=== PATIENT | female | born 1970 | race Caucasian/White ===

== ENCOUNTER 2016-12-22 15:02 | Emergency (ER) | payer BC, OTHER ==
[2016-12-22 15:22] VITALS: BP 150/74
--- NOTE | 2016-12-22 15:55 | UC ---
Throat Pain/Nasal Dilan HPI - HPI Summary HPI Summary: Painful spot around lower R ear for about 2 weeks, much worse with eating. Pt thinks it is her salivary gland. Denies swelling or fevers, but has felt some chills. - History of Current Complaint Hx Obtained From: Patient Hx Last Menstrual Period: one month ago ?: No Onset/Duration: Gradual Onset, Lasting Weeks Severity: Moderate Cough: None Associated Signs & Symptoms: Negative: Wheezing, Hoarseness, Nasal Discharge, Fever, Vomiting, Rash <Tangela Lu - Last Filed: 12/22/16 15:47> <Angie Downing - Last Filed: 12/22/16 16:41> - History of Current Complaint Chief Complaint: UCGeneralIllness Stated Complaint: GLAND PAIN Time Seen by Provider: 12/22/16 15:31 - Allergies/Home Medications Allergies/Adverse Reactions: Allergies Allergy/AdvReac Type Severity Reaction Status Date / Time Penicillins Allergy Severe Anaphylatic Verified 12/22/16 15:22 Shock Home Medications: Home Medications DULoxetine DR CAP* [Cymbalta CAP*] 1 tab PO DAILY 12/22/16 [History Confirmed ] PMH/Surg Hx/FS Hx/Imm Hx - Additional Past Medical History Additional PMH: fibromyalgia - Surgical History Surgical History: Yes Surgery Procedure, Year, and Place: TONSILECTOMY. TUBAL LIGATION. BILATERAL CARPAL TUNNEL - Family History Known Family History: Positive: None - Social History Alcohol Use: None Substance Use Type: None Smoking Status (MU): Light Every Day Tobacco Smoker <Tangela Lu - Last Filed: 12/22/16 15:47> Review of Systems Constitutional: Negative Skin: Negative Eyes: Negative ENT: Other - R parotid pain Respiratory: Negative Cardiovascular: Negative Gastrointestinal: Negative Genitourinary: Negative Motor: Negative Neurovascular: Negative Musculoskeletal: Negative Neurological: Negative Psychological: Negative Is Patient Immunocompromised?: No All Other Systems Reviewed And Are Negative: Yes <Tangela Lu - Last Filed: 12/22/16 15:47> Physical Exam Triage Information Reviewed: Yes Appearance: Well-Appearing, Well-Nourished Vital Signs: Initial Vital Signs Temp 97.3 F 12/22/16 15:19 Pulse 116 12/22/16 15:19 Resp 18 12/22/16 15:19 BP 150/74 12/22/16 15:19 Pulse Ox 100 12/22/16 15:19 Vital Signs Reviewed: Yes Eye Exam: Normal, Other - PERRL Eyes: Positive: Conjunctiva Clear ENT: Positive: Hearing grossly normal, Pharynx normal, TMs normal, Other: - tenderness, no swelling over R parotid gland. Negative: Nasal congestion, Nasal drainage Dental Exam: Normal Neck exam: Normal Neck: Positive: Supple, Nontender, No Lymphadenopathy Respiratory Exam: Normal Respiratory: Positive: Chest non-tender, Lungs clear, Normal breath sounds, No respiratory distress, No accessory muscle use Cardiovascular Exam: Normal Cardiovascular: Positive: RRR, No Murmur Musculoskeletal Exam: Normal Neurological Exam: Normal Neurological: Positive: Alert Psychological Exam: Normal Skin Exam: Normal <Tangela Lu - Last Filed: 12/22/16 15:47> Vital Signs: Initial Vital Signs Temp 97.3 F 12/22/16 15:19 Pulse 116 12/22/16 15:19 Resp 18 12/22/16 15:19 BP 150/74 12/22/16 15:19 Pulse Ox 100 12/22/16 15:19 <Angie Downing - Last Filed: 12/22/16 16:41> Throat Pain/Nasal Course/Dx - Differential Dx/Diagnosis Provider Diagnoses: siladinitis R parotid gland <Tangela Lu - Last Filed: 12/22/16 15:47> Discharge <Tangela Lu - Last Filed: 12/22/16 15:47> <Angie Downing - Last Filed: 12/22/16 16:41> - Discharge Plan Condition: Stable Disposition: HOME Prescriptions: Clindamycin Cap(NF) [Clindamycin Cap 300 mg Cap(NF)] 300 mg PO Q6H #28 cap Patient Education Materials: Sialoadenitis (ED) Forms: *Work Release Referrals: Layo Felix MD [Medical Doctor] - 4 Days Additional Instructions: Massage the sore spot, drink plenty of fluids, and follow up with the ENT within a week. Attestation Statement User Type: Provider - I was available for consult. This patient was seen by the BOONE. The patient was not presented to, seen by, or examined by me. -Adrienne <Angie Downing - Last Filed: 12/22/16 16:41>
== END 2016-12-22 16:08 | disposition home or self-care (01) ==
LOC: UCEAST 15:02
DX: K11.20 Sialoadenitis, unspecified (principal); Z88.0 Allergy status to penicillin; F17.200 Nicotine dependence, unspecified, uncomplicated
CPT/HCPCS: 99202; G0463

== ENCOUNTER 2017-03-24 16:40 | Inpatient (IN) | payer OTHER ==
[2017-03-24 20:00] LABS: ABS Basophils 0.1 10^3/ul (0-0.2); ABS Eosinophils 0.2 10^3/ul (0-0.6); ABS Lymphocytes 3.3 10^3/ul (1.0-4.8); ABS Monocytes 0.4 10^3/ul (0-0.8); ABS Neutrophils 6.1 10^3/ul (1.5-7.7); ABS Nucleated RBC 0 10^3/ul; Eosinophil % 1.5 % (0-6); Hematocrit 45 % (35-47); Hemoglobin 15.4 g/dl (12.0-16.0); Mean Corpuscular HGB Conc 35 g/dl (31-36); Mean Corpuscular Hemoglobin 32 pg (27-31); Mean Corpuscular Volume 93 fL (80-97); Mean Platelet Volume 7 um3 (7.4-10.4); Nucleated Red Blood Cells % 0; Platelet Count 334 10^3/ul (150-450); Red Blood Count 4.79 10^6/ul (4.0-5.4); Red Cell Distribution Width 13 % (10.5-15); White Blood Count 10.1 10^3/ul (3.5-10.8)
[2017-03-24 20:15] LABS: EGFR Non-African American 105.6 (>60)
[2017-03-24] MEDS ORDERED: Vancomycin(*) 1,250 MG in NS 0.9% 250 ML* 250 ML IVPB ONE (22:41)
[2017-03-24] MEDS ORDERED: traMADol TAB* 50 MG PO ONE (22:41)
--- NOTE | 2017-03-24 23:23 | ED ---
Devyn Batista Gabriel, scribed for Chuckie Quach MD on 03/24/17 at 2229 . Lower Extremity - HPI Summary HPI Summary: This patient is a 46 year old F presenting to [facility] with a chief complaint of a sore on her right foot. The patient rates the pain 5/10 in severity. Patient was seen at [place] and a swab of the foot and it showed coag neg staff resistant to everything but vancomycin and hycamtin. She was given Bactrim, Keflex, and Levaquin prior to these test results. Patient has had two x-rays that were negative for bone infection one in [facility] and one in [place]. Hx of DM. - History of Current Complaint Chief Complaint: EDExtremityLower Stated Complaint: OPEN SORE ON RT FT Time Seen by Provider: 03/24/17 21:53 Hx Obtained From: Patient Hx Last Menstrual Period: one month ago Mechanism Of Injury: Unknown Onset/Duration: Still Present Severity Initially: Moderate Severity Currently: Moderate Pain Intensity: 5 Pain Scale Used: 0-10 Numeric Timing: Constant Associated Signs And Symptoms: Positive: Swelling, Redness Able to Bear Weight: Yes - Allergies/Home Medications Allergies/Adverse Reactions: Allergies Allergy/AdvReac Type Severity Reaction Status Date / Time Penicillins Allergy Severe Anaphylatic Verified 12/22/16 15:22 Shock Erythromycin Allergy Hives Verified 03/24/17 22:55 Morphine AdvReac GI Upset Verified 03/24/17 22:57 PMH/Surg Hx/FS Hx/Imm Hx Endocrine/Hematology History: Reports: Hx Diabetes History: Denies: Hx Benign Prostatic Hyperplasia Musculoskeletal History: Denies: Hx Arthritis, Hx Rheumatoid Arthritis Psychiatric History: Denies: Hx Anxiety - Surgical History Surgery Procedure, Year, and Place: TONSILECTOMY. TUBAL LIGATION. BILATERAL CARPAL TUNNEL Infectious Disease History: No Infectious Disease History: Denies: Traveled Outside the [place] in Last 30 Days - Family History Known Family History: Positive: Diabetes - father, mother Negative: Renal Disease, Respiratory Disease, Seizure Disorder - Social History Occupation: Employed Full-time Alcohol Use: None Hx Substance Use: No Substance Use Type: Reports: None Hx Tobacco Use: Yes Smoking Status (MU): Light Every Day Tobacco Smoker Review of Systems Negative: Fever, Chills Negative: Erythema Negative: Sore Throat Negative: Chest Pain Negative: Shortness Of Breath, Cough Negative: Abdominal Pain, Vomiting, Nausea Negative: dysuria, hematuria Negative: Myalgia, Edema Negative: Rash Neurological: Negative - dizziness All Other Systems Reviewed And Are Negative: Yes Physical Exam - Summary Physical Exam Summary: Constitutional: Well-developed, Well-nourished, Alert. (-) Distressed Skin: Warm, Dry Sore over 5th metatarsal phalangeal joint with mild erythema. HENT: Normocephalic; Atraumatic Eyes: Conjunctiva normal Neck: Musculoskeletal ROM normal neck. (-) JVD, (-) Stridor, (-) Tracheal deviation Cardio: Rhythm regular, rate normal, Heart sounds normal; Intact distal pulses; The pedal pulses are 2+ and symmetric. Radial pulses are 2+ and symmetric. (-) Murmur Pulmonary/Chest wall: Effort normal. (-) Respiratory distress, (-) Wheezes, (-) Rales Abd: Soft, (-) Tenderness, (-) Distension, (-) Guarding, (-) Rebound Musculoskeletal: (-) Edema Lymph: (-) Cervical adenopathy Neuro: Alert, Oriented x3 Psych: Mood and affect Normal Triage Information Reviewed: Yes Vital Signs On Initial Exam: Initial Vitals Temp Pulse Resp BP Pulse Ox 98.6 F 101 18 166/66 97 03/24/17 17:09 03/24/17 17:09 03/24/17 17:09 03/24/17 17:09 03/24/17 17:09 Vital Signs Reviewed: Yes Diagnostics - Vital Signs Vital Signs Temp Pulse Resp BP Pulse Ox 03/24/17 21:55 97.9 F 78 100 117/68 100 03/24/17 19:42 98.1 F 127/66 99 03/24/17 17:09 98.6 F 101 18 166/66 97 - Laboratory Lab Results: Lab Results 03/24/17 03/24/17 03/24/17 Range/Units 19:48 19:48 19:48 WBC 10.1 (3.5-10.8) 10^3/ul RBC 4.79 (4.0-5.4) 10^6/ul Hgb 15.4 (12.0-16.0) g/dl Hct 45 (35-47) % MCV 93 (80-97) fL MCH 32 H (27-31) pg MCHC 35 (31-36) g/dl RDW 13 (10.5-15) % Plt Count 334 (150-450) 10^3/ul MPV 7 L (7.4-10.4) um3 Neut % (Auto) 60.7 (38-83) % Lymph % (Auto) 33.0 (25-47) % [place] % (Auto) 3.8 (1-9) % Eos % (Auto) 1.5 (0-6) % Baso % (Auto) 1.0 (0-2) % Absolute Neuts (auto) 6.1 (1.5-7.7) 10^3/ul Absolute Lymphs (auto) 3.3 (1.0-4.8) 10^3/ul Absolute Monos (auto) 0.4 (0-0.8) 10^3/ul Absolute Eos (auto) 0.2 (0-0.6) 10^3/ul Absolute Basos (auto) 0.1 (0-0.2) 10^3/ul Absolute Nucleated RBC 0 10^3/ul Nucleated RBC % 0 Sodium 129 L (133-145) mmol/L Potassium 3.7 (3.5-5.0) mmol/L Chloride 96 L (101-111) mmol/L Carbon Dioxide 26 (22-32) mmol/L Anion Gap 7 (2-11) mmol/L BUN 8 (6-24) mg/dL Creatinine 0.61 (0.51-0.95) mg/dL Est GFR ( Amer) 135.8 (>60) Est GFR (Non-Af Amer) 105.6 (>60) BUN/Creatinine Ratio 13.1 (8-20) Glucose 167 H (70-100) mg/dL Lactic Acid 0.7 (0.5-2.0) mmol/L Calcium 9.5 (8.6-10.3) mg/dL Total Bilirubin 0.50 (0.2-1.0) mg/dL AST 10 L (13-39) U/L ALT 8 (7-52) U/L Alkaline Phosphatase 73 (34-104) U/L C-React Prot High Sens 2.83 mg/L Total Protein 7.2 (6.4-8.9) g/dL Albumin 4.2 (3.2-5.2) g/dL Globulin 3.0 (2-4) g/dL Albumin/Globulin Ratio 1.4 (1-3) Result Diagrams: 03/24/17 19:48 03/24/17 19:48 Lab Statement: Any lab studies that have been ordered have been reviewed, and results considered in the medical decision making process. Lower Extremity Course/Dx - Course Assessment/Plan: This patient is a 46 year old F presenting to [facility] with a chief complaint of a sore on her right foot. The patient rates the pain 5/10 in severity. Patient was seen at [place] and a swab of the foot and it showed coag neg staff resistant to everything but vancomycin and hycamtin. She was given Bactrim, Keflex, and Levaquin prior to these test results. Patient has had two x -rays that were negative for bone infection one in [facility] and one in [place]. Hx of DM. Will be admitted for vancomycin due to multi drug resistant organism. Test results with no significant abnormalities. Patient will be admitted. The patient is agreeable with this plan. - Diagnoses Provider Diagnoses: Osteomyelitis of right foot - Physician Notifications Discussed Care Of Patient With: Dain Lynch Time Discussed With Above Provider: 23:07 Instructed by Provider To: Admit As Inpatient Discharge - Discharge Plan Condition: Fair Disposition: ADMITTED TO [facility] Referrals: Keisha Tim NP [Primary Care Provider] - The documentation as recorded by the Devyn pryor Gabriel accurately reflects the service I personally performed and the decisions made by , Chuckie Quach MD.
--- NOTE | 2017-03-24 23:24 | HP ---
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 She admits to pain at the site, but denies F/C, sweats, N/V, diarrhea , or other issues. Pain is worse with palpation, no alleviating factors. PMedHx DM2, poorly controlled Ambulatory Orders Clindamycin Cap(NF) [Clindamycin Cap 300 mg Cap(NF)] 300 mg PO Q6H #28 cap 12/[address] CAP* [Cymbalta CAP*] 1 tab PO DAILY 12/22/16 Clindamycin HCl [Clindamycin 150 MG CAP*] 300 mg PO QID #80 cap 01/15/17 HYDROcodone/ACETAMIN 5-325 MG* [[place] 5-325 TAB*] 1 tab PO Q6H PRN #8 tab MDD 4 01/15/17 Insulin GLARGINE(*) 40 units SUBCUT DAILY 03/25/17 Allergies Penicillins Allergy (Severe, Verified 12/22/16 15:22) Anaphylatic Shock Erythromycin Allergy (Verified 03/24/17 22:55) Hives Morphine Adverse Reaction (Verified 03/24/17 22:57) GI Upset PSurgHx tonsillectomy tubal ligation B carpal tunnel release trigger finger repair SocHx: 1PPD cigarettes, rare alcohol, denies recreational drugs; lives with her ; 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 [employer]; full code status FamHx: Mother: alive at 67 w/ DM2 & hypothyroidism; Father: passed at 52 2nd lung damage from a cardiac medication ROS: as above, otherwise reviewed and all were negative vitals: Vital Signs Temp 36.6 C 03/25/17 01:36 Pulse 99 03/25/17 01:36 Resp 18 03/25/17 01:36 BP 146/73 03/25/17 01:36 Pulse Ox 100 03/25/17 01:36 Intake & Output 03/24/17 03/24/17 03/25/17 11:59 23:59 11:59 Weight 54.431 kg 52.707 kg Constitutional: NAD, normally developed, well-nourished white female HEENM: atraumatic; sclera/conjunctiva: anicteric/clear; hearing: clinically intact; oropharynx: clear, mucosa moist Neck: soft tissue: non-tender; thyroid: normal Pulmonary: clear to auscultation bilaterally, good aeration, no accessory muscle use CV: RR/RR, normal S1S2, 2/6 systolic ejection murmur radiating to B carotids, no jugular venous distention, 2+ B DP/PT, no edema Abdominal: soft, non-distended, non-tender, no rebound/guarding/rigidity, normoactive bowel sounds, no hepatosplenomegaly or masses, no costovertebral angle tenderness Musculoskeletal: general: grossly intact, no deformity noted Integumental: R 5th toe erythematous streaking down laterally with eschar formation at the base laterally, tender to palpation, no induration, positive warmth Psychiatric orientation: AA&O to PPS affect: calm mood: cooperative eye contact: good content: reliable responses: timely insight: fair Testing: Lab Results 03/24/17 03/24/17 03/24/17 Range/Units 19:48 19:48 19:48 WBC 10.1 (3.5-10.8) 10^3/ul RBC 4.79 (4.0-5.4) 10^6/ul Hgb 15.4 (12.0-16.0) g/dl Hct 45 (35-47) % MCV 93 (80-97) fL MCH 32 H (27-31) pg MCHC 35 (31-36) g/dl RDW 13 (10.5-15) % Plt Count 334 (150-450) 10^3/ul MPV 7 L (7.4-10.4) um3 Neut % (Auto) 60.7 (38-83) % Lymph % (Auto) 33.0 (25-47) % [place] % (Auto) 3.8 (1-9) % Eos % (Auto) 1.5 (0-6) % Baso % (Auto) 1.0 (0-2) % Absolute Neuts (auto) 6.1 (1.5-7.7) 10^3/ul Absolute Lymphs (auto) 3.3 (1.0-4.8) 10^3/ul Absolute Monos (auto) 0.4 (0-0.8) 10^3/ul Absolute Eos (auto) 0.2 (0-0.6) 10^3/ul Absolute Basos (auto) 0.1 (0-0.2) 10^3/ul Absolute Nucleated RBC 0 10^3/ul Nucleated RBC % 0 Sodium 129 L (133-145) mmol/L Potassium 3.7 (3.5-5.0) mmol/L Chloride 96 L (101-111) mmol/L Carbon Dioxide 26 (22-32) mmol/L Anion Gap 7 (2-11) mmol/L BUN 8 (6-24) mg/dL Creatinine 0.61 (0.51-0.95) mg/dL Est GFR ( Amer) 135.8 (>60) Est GFR (Non-Af Amer) 105.6 (>60) BUN/Creatinine Ratio 13.1 (8-20) Glucose 167 H (70-100) mg/dL Lactic Acid 0.7 (0.5-2.0) mmol/L Calcium 9.5 (8.6-10.3) mg/dL Total Bilirubin 0.50 (0.2-1.0) mg/dL AST 10 L (13-39) U/L ALT 8 (7-52) U/L Alkaline Phosphatase 73 (34-104) U/L C-React Prot High Sens 2.83 mg/L Total Protein 7.2 (6.4-8.9) g/dL Albumin 4.2 (3.2-5.2) g/dL Globulin 3.0 (2-4) g/dL Albumin/Globulin Ratio 1.4 (1-3) XRY R foot, personally reviewed: soft tissue swelling base of 5th toe without horacio-osteal reaction Impression: 46F HX DM presenting with a limb-threatening R foot infection CX'd at [facility] to reveal staph reportedly sensitive only to vancomycin & rifampin DIAGNOSIS & PLAN Primary diabetic foot infection : MRI foot in AM to evaluate for osteomyelitis : IV vancomycin : wound CX : consider ID consult in AM : obtain records from [facility] : IVFs : supportive care cardiac murmur radiating to B carotids vs B carotid bruits : ECHO in AM : carotid US in AM Secondary DM2 : A1c 11.2 in Jan 2017 : basal/bolus/correctional insulin : insulin carb ratio diet Admission Rational: inpatient for limb threatening diabetic foot infection; inappropriate for outpatient setting given reported resistance & IV requirement DVTp: MONY Code Status: full HCP:
[2017-03-25] MEDS ORDERED: Acetaminophen TAB* 325 MG PO PRN (02:43)
[2017-03-25] MEDS ORDERED: CMCS: Melatonin (NF) 3 MG TAB PO PRN (02:43)
[2017-03-25] MEDS ORDERED: Albuterol 2.5 MG/3 ML NEB.SOL* (0.083%) INH PRN (02:43)
[2017-03-25] MEDS ORDERED: NS 0.9% 1000 ML* 1,000 ML IV SCH (02:45)
[2017-03-25] MEDS ORDERED: Vancomycin per Pharmacy* NOTE FOLLOW UP SCH (03:00)
[2017-03-25] MEDS: Omeprazole CAP* 20 MG PO SCH (05:39)
--- NOTE | 2017-03-25 08:17 | RAD ---
INDICATION: Plantar ulcer COMPARISON: None TECHNIQUE: AP, lateral, and oblique views were obtained. FINDINGS: The bony structures, joint spaces, and soft tissues are normal for age. IMPRESSION: NEGATIVE EXAMINATION.
[2017-03-25] MEDS ORDERED: Vancomycin(*) 750 MG in NS 0.9% 250 ML* 250 ML IVPB SCH ×2 (08:30→12:00)
[2017-03-25 09:34] LABS: ABS Basophils 0.1 10^3/ul (0-0.2); ABS Eosinophils 0.2 10^3/ul (0-0.6); ABS Lymphocytes 2.5 10^3/ul (1.0-4.8); ABS Monocytes 0.4 10^3/ul (0-0.8); ABS Neutrophils 4.1 10^3/ul (1.5-7.7); ABS Nucleated RBC 0 10^3/ul; Eosinophil % 2.5 % (0-6); Hematocrit 43 % (35-47); Hemoglobin 14.8 g/dl (12.0-16.0); Lymphocyte % 34.6 % (25-47); Mean Corpuscular HGB Conc 34 g/dl (31-36); Mean Corpuscular Hemoglobin 32 pg (27-31); Mean Corpuscular Volume 93 fL (80-97); Mean Platelet Volume 7 um3 (7.4-10.4); Nucleated Red Blood Cells % 0.1; Platelet Count 333 10^3/ul (150-450); Red Blood Count 4.64 10^6/ul (4.0-5.4); Red Cell Distribution Width 13 % (10.5-15); White Blood Count 7.2 10^3/ul (3.5-10.8)
[2017-03-25 09:53] LABS: EGFR Non-African American 116.5 (>60)
[2017-03-25] MEDS: Insulin LISPRO* 1 UNITS UNIT SUBCUT SCH ×7 (10:14→21:08)
[2017-03-25] MEDS ORDERED: Mouth Piece, Nicotine* 1 EACH CARTRIDGE INH PRN (11:40)
[2017-03-25] MEDS ORDERED: Nicotine Inhaler* 10 MG AMP INH PRN (11:40)
[2017-03-25] MEDS: Ondansetron INJ* 2 MG/ML VIAL IV PRN ×2 (12:03→20:54)
--- NOTE | 2017-03-25 12:03 | RAD ---
Indication: Wound on the lateral aspect of the RIGHT foot at level of the head of the fifth metatarsal. Comparison: March 24, 2017 radiographs. Technique: [employer] 1.5 Shari [id number] with GEM suite. Noncontrast MRI RIGHT foot from the level of the transverse tarsal joint through the toes. Report: Negative for fracture. Mild increased T2 signal at the head of the metatarsal subjacent to the skin marker indicating the soft tissue ulcer site. No definitive associated decreased loss of normal T1 marrow hyperintensity. Soft tissue edema extends to the periosteal surface of the head of the fifth metatarsal. Small subchondral cyst at the head of the fifth metatarsal. No loculated soft tissue plane abscess collection evident. Small intraosseous ganglion at the first proximal phalanx along the plantar aspect. IMPRESSION: Corresponding with the lateral forefoot soft tissue ulcer there is mild edema within the head of the fifth metatarsal without definitive loss of normal T1 marrow hyperintensity. The differential includes reactive edema versus early osteomyelitis.
--- NOTE | 2017-03-25 12:04 | RAD ---
CPT II: CPT II Codes: 3100F Indication: Right-sided carotid bruit. Duplex Doppler sonography of the carotid arteries was performed. The right common carotid artery demonstrates intimal wall thickening with plaque in the carotid bulb extending into the right internal carotid artery. Plaque is noted in the carotid bulb extending into the right internal carotid arteries. The peak systolic velocity of the distal right common carotid artery 75 cm/s. Peak systolic velocity of the right internal carotid artery is 241 cm/s. The ICA/CCA ratio is 3.2. Right vertebral artery demonstrates antegrade flow. The left common carotid artery demonstrates mild wall thickening with plaque extending from the bulb to the left internal carotid artery. Peak systolic velocity of the distal left common carotid arteries 85 cm/s. Peak systolic velocity left internal carotid artery is 111 cm/s. The ICA/CCA ratio is 1.3. Left vertebral artery demonstrates antegrade flow. IMPRESSION: Right internal carotid artery stenosis greater than 70%. Less than 50% stenosis left internal carotid artery.
[2017-03-25] MEDS: Vancomycin(*) 750 MG in NS 0.9% 250 ML* 250 ML IVPB SCH ×2 (12:06→20:56)
[2017-03-25] MEDS: Hydrocodone/Acetamin 10/325 1 TAB PO PRN ×2 (12:15→20:47)
[2017-03-25] MEDS: Docusate CAP* 100 MG PO SCH ×2 (12:36→20:41)
[2017-03-25] MEDS ORDERED: traMADol TAB* 50 MG PO PRN (17:00)
--- NOTE | 2017-03-25 17:05 | ECHO ---
Patient: BUDDY HORNE Rec#: [id number] : 1970 Date: 03/25/2017 Age: 46y Height: 157.48 cm / 62.0 in Weight: 52.62 kg / 116.0 lbs Sex: F BSA: 1.52 Room#: [facility] Admit Date#: 03/24/2017 Type: Inpatient Referring: Dain Lynch MD Reading: Barbi Bradford MD Runner Man: Dorothy BluntSADA CC: Keisha Tim, BROOMMAKER Transthoracic Echocardiogram Indication: Murmur, + Blood cultures BP: 128/63 HR: 80 Rhythm: NSR Findings History: DMII, smoker, +BC from right 5th toe Staphylococcus, 2/6 systolic ejection murmur. Technical Comments: The study quality is good. Completed at 1630. Left Ventricle: The left ventricular chamber size is normal. Mild concentric left ventricular hypertrophy is observed. Global left ventricular wall motion and contractility are within normal limits. There is normal left ventricular systolic function. The estimated ejection fraction is 60-65%. There is no consistent Doppler evidence of clinically significant diastolic dysfunction. Left Atrium: The left atrial chamber size is normal. Right Ventricle: Moderator Band present. The right ventricular cavity size is normal. The right ventricular global systolic function is normal. Right Atrium: The right atrial cavity size is normal. Aortic Valve: The aortic valve is trileaflet. The aortic valve leaflets are mildly thickened. There is a trace of aortic regurgitation. There is no evidence of aortic stenosis. There is no aortic vegetation present. Mitral Valve: The mitral valve leaflets are mildly thickened. Mitral valve leaflet mobility is mildly restricted. There is a trace of mitral regurgitation. There is no evidence of mitral stenosis. No vegetation is observed on the mitral valve. Tricuspid Valve: The tricuspid valve leaflets are normal. There is trace tricuspid regurgitation. Unable to estimate the right ventricular systolic pressure. There is no tricuspid stenosis. No vegetation is observed on the tricuspid valve. Pulmonic Valve: The pulmonic valve appears normal. There is a trace pulmonic regurgitation. There is no pulmonic stenosis. No vegetation is observed on the pulmonic valve. Pericardium: There is no significant pericardial effusion. Aorta: There is no dilatation of the ascending aorta. There is no dilatation of the aortic arch. The aortic root is normal in size. Pulmonary Artery: The main pulmonary artery appears normal. Venous: The inferior vena cava appears normal in size. There is a greater than 50% respiratory change in the inferior vena cava dimension. Conclusions Mild concentric left ventricular hypertrophy is observed. Global left ventricular wall motion and contractility are within normal limits. The estimated ejection fraction is 60-65%. The right ventricular global systolic function is normal. The aortic valve leaflets are mildly thickened with good excursion and trace aortic regurgitation. The mitral valve leaflets are mildly thickened, mild restriction. There is a trace of mitral regurgitation. There is trace tricuspid regurgitation. No vegetations noted. No prior echo to compare. Measurements Name Value Normal Range RVIDd (AP) 2D 2.7 cm (0.9 - 2.6) RVDdMajor (2D) 2.5 cm (2.2 - 4.4) RVAW (2D) 0.5 cm (0.2 - 0.5) RAd ISD 4CH 4.3 cm (3.4 - 4.9) RA (A4C)W 3.4 cm (2.9 - 4.6) IVSd (2D) 1.2 cm (0.6 - 1) LVPWd (2D) 1.1 cm (0.6 - 1) LVIDd (2D) 3.6 cm (3.6 - 5.4) LVIDs (2D) 2.7 cm - LV FS (2D) 24 % (25 - 45) Aortic Annulus 1.7 cm (1.4 - 2.6) Ao root diameter (2D) 2.8 cm (2.1 - 3.5) Ascending Ao 2.5 cm (2.1 - 3.4) Aortic arch 2.4 cm (1.8 - 3.4) LA dimension (AP) 2D 3.2 cm (2.3 - 3.8) LAd ISD 4CH 4.2 cm (2.9 - 5.3) LA ISD 4CH W 3.8 cm (2.5 - 4.5) Name Value Normal Range LA ESV SP 4CH (A/L) 33 ml - LA ESV SP 2CH (A/L) 42 ml - LA ESV BP (A/L) 42 ml - LA ESV BP (A/L) index 28 ml/m2 - LA ESV SP 4CH (MOD) 31 ml - LA ESV SP 2CH (MOD) 40 ml - Name Value Normal Range MV E-wave Vmax 0.86 m/sec - MV deceleration time 205.7 msec - MV A-wave Vmax 1.03 m/sec - MV E:A ratio 0.83 ratio - LV septal e' Vmax 0.06 m/sec - LV lateral e' Vmax 0.07 m/sec - LV E:e' septal ratio 14.33 ratio - LV E:e' lateral ratio 12.29 ratio - Name Value Normal Range AV Vmax 1.31 m/sec - AV VTI 26.01 cm - AV peak gradient 6.87 mmHg - AV mean gradient 3.89 mmHg - LVOT Vmax 0.9 m/sec - LVOT VTI 18.08 cm - LVOT peak gradient 3.21 mmHg - LVOT mean gradient 1.53 mmHg - LIOR Vmax 1.25 m/sec - Name Value Normal Range IVC diameter 2 cm - Name Value Normal Range PV Vmax 0.79 m/sec - PV peak gradient 2.52 mmHg -
--- NOTE | 2017-03-25 17:49 | PN ---
Subjective Date of Service: 03/25/17 Interval History: This AM wanted to go outside. Upset she was not allowed. Discussed leaving AMA which I advised against and patient stayed This evening asking for additional pain medication and tramadol was added Home norco dose reviewed in [facility]Stop Objective Active Medications: Acetaminophen (Tylenol Tab*) 650 mg PO Q6H PRN PRN Reason: FEVER/PAIN Hydrocodone Bitart/Acetaminophen ([place] 10/325 (Nf)) 1 tab PO Q4H PRN PRN Reason: PAIN Last Admin: 03/25/17 12:15 Dose: 1 tab Albuterol (Ventolin 2.5 Mg/3 Ml Neb.Eloina*) 2.5 mg INH Q2H PRN PRN Reason: SOB/WHEEZING Device (Nicotine Mouth Piece*) 1 each INH .USE WITH NICOTROL PRN PRN Reason: CRAVING Last Admin: 03/25/17 11:55 Dose: 1 each Docusate Sodium (Colace Cap*) 200 mg PO BID [facility] Last Admin: 03/25/17 12:36 Dose: Not Given Sodium Chloride (Ns 0.9% 1000 Ml*) 1,000 mls @ 75 mls/hr IV PER RATE [facility] Vancomycin HCl 750 mg/ Sodium (Chloride) 250 mls @ 166.667 mls/hr IVPB Q8H [facility] Last Admin: 03/25/17 12:06 Dose: 166.667 mls/hr Insulin Glargine (Lantus(*)) 8 units 0.16 units/kg (8 units) SUBCUT 2100 [facility] Stop: 03/26/17 20:00 Insulin Human Lispro (Humalog*) 0 units SUBCUT AC DEVANG PRN Reason: Protocol Last Admin: 03/25/17 13:26 Dose: Not Given Insulin Human Lispro (Humalog*) 0 units SUBCUT ACHS DEVANG PRN Reason: Protocol Last Admin: 03/25/17 13:26 Dose: Not Given Melatonin (Melatonin (Nf)) 3 mg PO BEDTIME PRN; Protocol PRN Reason: Sleep Nicotine (Nicotine Inhaler*) 10 mg INH Q2H PRN PRN Reason: CRAVING Last Admin: 03/25/17 11:55 Dose: 10 mg Nicotine (Nicotine Patch 21 Mg/24 Hr*) 1 patch TRANSDERM DAILY [facility] Omeprazole (Prilosec Cap*) 20 mg PO DAILY@0600 [facility] Last Admin: 03/25/17 05:39 Dose: 20 mg Ondansetron HCl (Zofran Inj*) 4 mg IV Q6H PRN PRN Reason: NAUSEA Last Admin: 03/25/17 12:03 Dose: 4 mg Pharmacy Consult (Vancomycin Per Pharmacy*) 1 note FOLLOW UP .VANC PER PHARMACY [facility] Pharmacy Profile Note (Vancomycin Trough Check) 1 note FOLLOW UP 1130 ONE Stop: 03/26/17 11:31 Pharmacy Profile Note (Nicotine Patch Removal Note*) 1 note PATCH OFF 0600 [facility] Tramadol HCl (Ultram*) 50 mg PO Q6H PRN PRN Reason: PAIN Vital Signs - 8 hr 03/25/17 12:15 Respiratory 18 Rate Oxygen Devices in Use Now: None Appearance: NAD Eyes: No Scleral Icterus, PERRLA Ears/Nose/Mouth/Throat: Clear Oropharnyx, Mucous Membranes Moist Neck: NL Appearance and Movements; NL JVP, Trachea Midline Respiratory: Symmetrical Chest Expansion and Respiratory Effort, Clear to Auscultation Cardiovascular: RRR Abdominal: NL Sounds; No Tenderness; No Distention, No Hepatosplenomegaly Lymphatic: No Cervical Adenopathy Extremities: No Edema Skin: - - base of right MTP with black eschar and surrounding erythema Neurological: Alert and Oriented x 3 Result Diagrams: 03/25/17 09:24 03/25/17 09:24 Additional Lab and Data: Lab Results 03/24/17 03/24/17 03/24/17 Range/Units 19:48 19:48 19:48 WBC 10.1 (3.5-10.8) 10^3/ul RBC 4.79 (4.0-5.4) 10^6/ul Hgb 15.4 (12.0-16.0) g/dl Hct 45 (35-47) % MCV 93 (80-97) fL MCH 32 H (27-31) pg MCHC 35 (31-36) g/dl RDW 13 (10.5-15) % Plt Count 334 (150-450) 10^3/ul MPV 7 L (7.4-10.4) um3 Neut % (Auto) 60.7 (38-83) % Lymph % (Auto) 33.0 (25-47) % [place] % (Auto) 3.8 (1-9) % Eos % (Auto) 1.5 (0-6) % Baso % (Auto) 1.0 (0-2) % Absolute Neuts (auto) 6.1 (1.5-7.7) 10^3/ul Absolute Lymphs (auto) 3.3 (1.0-4.8) 10^3/ul Absolute Monos (auto) 0.4 (0-0.8) 10^3/ul Absolute Eos (auto) 0.2 (0-0.6) 10^3/ul Absolute Basos (auto) 0.1 (0-0.2) 10^3/ul Absolute Nucleated RBC 0 10^3/ul Nucleated RBC % 0 Sodium 129 L (133-145) mmol/L Potassium 3.7 (3.5-5.0) mmol/L Chloride 96 L (101-111) mmol/L Carbon Dioxide 26 (22-32) mmol/L Anion Gap 7 (2-11) mmol/L BUN 8 (6-24) mg/dL Creatinine 0.61 (0.51-0.95) mg/dL Est GFR ( Amer) 135.8 (>60) Est GFR (Non-Af Amer) 105.6 (>60) BUN/Creatinine Ratio 13.1 (8-20) Glucose 167 H (70-100) mg/dL Lactic Acid 0.7 (0.5-2.0) mmol/L Calcium 9.5 (8.6-10.3) mg/dL Total Bilirubin 0.50 (0.2-1.0) mg/dL AST 10 L (13-39) U/L ALT 8 (7-52) U/L Alkaline Phosphatase 73 (34-104) U/L C-React Prot High Sens 2.83 mg/L Total Protein 7.2 (6.4-8.9) g/dL Albumin 4.2 (3.2-5.2) g/dL Globulin 3.0 (2-4) g/dL Albumin/Globulin Ratio 1.4 (1-3) Assess/Plan/Problems-Billing Assessment: 46 yo F p/w right foot ulcer associated with suspected osteomyelitis - Patient Problems (1) Osteomyelitis Comment: Requesting records from [place] Reportedly wound culture revealed staph only sensitive to vancomycine and rifampin c/w vancomycin ID consult arrange home infusion after confirming sensitivites and vanco dosing (2) Nicotine abuse Comment: nicotine inhaler and patch (3) Diabetes Comment: c/w lantus refusing lispro
[2017-03-25] MEDS ORDERED: Insulin GLARGINE(*) 1 UNITS UNIT SUBCUT SCH (21:00)
[2017-03-26] MEDS: Hydrocodone/Acetamin 10/325 1 TAB PO PRN ×3 (03:23→14:37)
[2017-03-26] MEDS: Omeprazole CAP* 20 MG PO SCH ×2 (05:18→05:25)
[2017-03-26] MEDS: Ondansetron INJ* 2 MG/ML VIAL IV PRN (05:18)
[2017-03-26] MEDS: Vancomycin(*) 750 MG in NS 0.9% 250 ML* 250 ML IVPB SCH ×2 (05:18→13:30)
[2017-03-26] MEDS: Docusate CAP* 100 MG PO SCH (08:04)
[2017-03-26] MEDS: Insulin LISPRO* 1 UNITS UNIT SUBCUT SCH ×4 (08:09→13:30)
[2017-03-26] MEDS ORDERED: Nicotine PATCH 21 MG/24 HR* PATCH TRANSDERM SCH (09:00)
[2017-03-26] MEDS ORDERED: Vancomycin Trough Check NOTE FOLLOW UP ONE (11:30)
--- NOTE | 2017-03-26 12:23 | CONS ---
CONSULTATION REPORT: DATE OF CONSULT: 03/26/17 REQUESTING PHYSICIAN: Dr. Torrez. CONSULTING SERVICE: Infectious Disease. REASON FOR CONSULT: Right foot nonhealing ulcer, osteomyelitis. IMPRESSION: 1. Non-healing right lateral forefoot ulcer in the setting of diabetes. An MRI done shows increased T2 signal in metatarsal head adjacent to the ulcer. There is not definitive loss of normal T1 hyperintensity. Given that there is really not much in the way of soft tissue infection, I think osteomyelitis is less likely. There seems to be a slight cellulitis, which has not responded to the antibiotics she has been on up to this point. 2. Diabetes. 3. PENICILLIN allergy. 4. The culture from the wound grew Staphylococcus epidermidis, which may be a pathogen here, may also be a colonization of it. 5. Linezolid 600 mg by mouth every 12 hours. Will plan on 4 weeks and follow the progress of her wound while she is on antibiotics. HISTORY OF PRESENT ILLNESS: A 46-year-old woman with right foot ulcer; it has been there a couple of months. She thinks it came from rubbing on her foot. She was seen at [facility] in the ER, an x-ray that was unrevealing in [place] as well. She had a wound culture there, that grew Staph epidermidis as described above. Because of persistence of the wound, she came to the hospital here. She has white count 10,000, C-reactive protein of 2. She has been afebrile. She had no fevers, chills, or sweats. She had not had a foot infection in the past. PAST MEDICAL HISTORY: 1. Diabetes. 2. Chronic pain. 3. Status post tonsillectomy. 4. Status post tubal ligation. 5. Status post carpal tunnel release, bilateral. 6. History of trigger finger repair. MEDICATIONS: 1. Tylenol. 2. Albuterol. 3. Docusate. 4. Insulin glargine. 5. Melatonin. 6. Nicotine patch. 7. Omeprazole. 8. Vancomycin 750 mg every 8 hours. ALLERGIES: PENICILLIN caused anaphylaxis, ERYTHROMYCIN caused hives, MORPHINE caused upset stomach. FAMILY HISTORY: Mother is alive at 67 with diabetes. Father at 52 with lung damage. SOCIAL HISTORY: She lives in [place]. 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 She has no injection drug use. REVIEW OF SYSTEMS: A 14-point review of systems was negative except as noted above. PHYSICAL EXAM: Vital Signs: Temperature is 37, heart rate 90, respiratory rate 16, blood pressure 140/50, O2 sat 98% on room air. In general, she is awake, not in distress. Neurologic: She is oriented x3. Follows all commands. HEENT: There is no conjunctival hemorrhage. Oropharynx is without lesions. Neck: Supple without nuchal rigidity. Lymph Nodes: There is no inguinal, axillary, or epitrochlear lymphadenopathy. Heart has regular rate and rhythm without murmurs, rubs, or gallops. Lungs are clear to auscultation bilaterally. Abdomen: Soft, nontender, nondistended. Bowel sounds are present. Skin: There is no rash or splinter hemorrhages. Musculoskeletal: There is no spine tenderness to palpation. There is a right lateral forefoot 2- cm ovoid eschar with surrounding trace erythema. There is 1+ dorsalis pedis pulse present. LABORATORY DATA: Creatinine 0.5. White blood cell count 7, hemoglobin 14, platelets 333. Please see impressions and recommendations outlined above, which I have discussed with Dr. Torrez. Thanks for asking me to see Ms. Brothers in consultation. [id number]/[facility] #: [id number] MELLISSA
--- NOTE | 2017-03-26 13:13 | HP ---
ORTHOPEDICS CONSULTATION/HISTORY AND PHYSICAL: DATE OF SERVICE: 03/24/17 REQUESTING SERVICE: Infectious disease. CHIEF COMPLAINT: Right foot pain and ulcer. HISTORY OF PRESENT ILLNESS: Clarice is a 46-year-old woman with history of type 2 diabetes who reports developing an ulcer on her right lateral forefoot over the last month. She thinks this was due to rubbing of her shoes on the lateral forefoot. She denies problems in this area in the past. Denies any fevers or chills. Denies any ulcers elsewhere. The pain and ulcer are located at the right lateral forefoot. The pain is described as daily, moderate, dull. Pain is worse with shoe wear and lessened when not wearing shoes. PAST MEDICAL HISTORY: Type 2 diabetes. PAST SURGICAL HISTORY: 1. Trigger finger. 2. Carpal tunnel. 3. Tubal ligation. 4. Tonsillectomy. HOME MEDICATIONS: 1. Duloxetine. 2. Insulin glargine. ALLERGIES: 1. PENICILLIN. 2. ERYTHROMYCIN. 3. MORPHINE. FAMILY HISTORY: Mother with type 2 diabetes and hypothyroidism. Father from lung issues. 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 She is a one pack per day smoker. Denies illicit drug use. Rare alcohol use. REVIEW OF SYSTEMS: Negative for fever, recent visual changes, difficulty swallowing, chest pain, shortness of breath, abdominal pain, hematuria, easy bruising, diffuse weakness or lack of coordination and diffuse rash. PHYSICAL EXAMINATION CONSTITUTIONAL: General appearance is healthy and nonseptic and in no acute distress. VITAL SIGNS: Temperature 98.1, pulse rate 91, respiratory rate 16, O2 saturation 98% on room air, blood pressure 140/57. CARDIOVASCULAR: Pulse examination reveals palpable pedal pulses with brisk capillary refill. There are no varicosities. ABDOMEN: Soft and nontender. LYMPHATIC: No lymphadenopathy appreciated. SKIN: Bilateral upper and left lower extremity examination reveals no ulcerative lesions. PSYCHIATRIC/NEUROLOGICAL: Appropriate affect. She is alert and oriented to person, place, and time. There is no significant abnormality in coordination appreciated. A 2+ deep tendon reflex affected extremity. MUSCULOSKELETAL: Gait reveals a mildly antalgic gait. Bilateral upper and contralateral lower extremity show full range of motion with no evidence instability and no tenderness to palpation and 5/5 strength. There is no gross deformity. Examination of the right lower extremity reveals that she has full 5 /5 motor strength throughout. She does have some decreased light touch sensation in the foot. There is no focal swelling, edema, or varicosities. There is a right lateral forefoot ulcer at the area of the lateral fifth metatarsal head that is about 2 cm x 1 cm. There is no associated drainage. There is no surrounding erythema. There is no obvious purulence. This does not appear to obviously track down to bone. She has painless and full ankle active range of motion. STUDIES: White blood count 7.2, hematocrit 43. C-reactive protein 2.83. IMAGING: X-rays and MRI of the right foot were obtained and independently reviewed. They do not show any definite osteomyelitis also no deep fluid collection or abscesses are appreciated. ASSESSMENT: This is a 46-year-old woman with right lateral forefoot diabetic foot ulcer likely from mechanical rubbing from too tight of shoes. There is no indication for surgical intervention at this time. There is no obvious deep infection. PLAN: I discussed with her at length today proper shoe wear including wide toe box shoes or shoes without toe box at all, so that the lateral forefoot is not being abraded. For now we will get her a postop shoe to help with this. We also discussed wound care and keeping the wound covered especially when in shoes to also help with decrease in rubbing. We will continue antibiotics as guided by the infectious disease service. We discussed trying to limit the amount of pressure on the ulcer and she will work on this. We discussed the importance of good glycemic control to help with healing. [id number]/[facility] #: [id number] MELLISSA
[2017-03-26 14:32] VITALS: BP 94/49
[2017-03-26] MEDS ORDERED: Nicotine Patch Removal NOTE PATCH OFF SCH (21:00)
--- NOTE | 2017-03-27 02:12 | DS ---
CC: Nyla Tim NP; Black Villarreal MD * DISCHARGE SUMMARY: DATE OF ADMISSION: 03/24/17 DATE OF DISCHARGE: 03/26/17 PRIMARY CARE PROVIDER: Nyla Tim NP PRIMARY DIAGNOSES: 1. Cellulitis with ulcer, right fifth metatarsal phalangeal. 2. Uncontrolled type 2 diabetes. MEDICATIONS ON DISCHARGE: Include: 1. Linezolid 600 mg twice daily. 2. Insulin glargine 40 units daily. 3. Cymbalta DR 1 cap daily. 4. [place] 5/325 one cap every 6 hours as needed. 5. Docusate 200 mg twice daily. 6. Acetaminophen 650 mg every 6 hours as needed for pain. PERTINENT IMAGING PERFORMED DURING HOSPITAL STAY: Transthoracic echocardiogram , impression: Estimated LVEF 60% to 65%, right ventricular global systolic function is normal. The aortic valve leaflets are mildly thickened with good excursion, trace AR. Mitral valves are mildly thickened with mild restriction, trace MR, trace TR, no vegetations. Lower extremity MRI of the right foot, impression: Corresponding with the lateral forefoot soft tissue ulcer, there is mild edema within the head of the fifth metatarsal without definitive loss with a normal T1 marrow hyperintensity. Differential includes radioactive edema versus early osteomyelitis. CONSULTATIONS DURING THE COURSE OF HOSPITAL STAY: Include Infectious Disease. HISTORY OF PRESENT ILLNESS AND HOSPITAL COURSE: This is a 46-year-old female with past medical history as outlined in the history of present illness, on the day of admission presented to the hospital after being contacted by [facility] that a wound culture from her right foot ulcer was growing coag- negative staph, resistant to oral antibiotics and sensitive to vancomycin and rifampicin. She presented to the hospital for further therapy where the MRI was performed as above. A review with Orthopedic Surgery as well as Dr. Villarreal thought that this MRI did not represent osteomyelitis at this time. She will be discharged on linezolid twice daily for 2 weeks with followup with Dr. Villarreal. Of note, the patient refused multiple exams by this author including of her right foot except for one occasion on the evening of admission. She refused sliding scale insulin as well as other medications. She had some episodes demanding additional pain medications. She did try to leave the building to smoke outside and became quite irate when informed she was not allowed to leave the building to smoke. In general, she was a fairly uncooperative patient, did not seem willing to discuss risks and benefits of her current therapy. It is unclear her compliance at this point. In discussing with the patient, she does currently have the capacity to make her own decisions. It is unclear if there are other underlying psychosocial, alcohol or drug factors contributing to her fairly disorderly behavior. Other examples of disorderly behavior, uncooperative behavior include refusing vancomycin troughs while she received vancomycin in the hospital pending the receipt of the records from [place]. Reasons to return to the hospital including, but not limited to worsening of symptoms including enlarging of the foot ulcer, fevers, chills, night sweats, chest pain, shortness of breath, nausea, vomiting, lightheadedness, inability to obtain or tolerate medication were discussed with the patient, she acknowledged understanding. TIME SPENT: Greater than 45 minutes were spent on discharge of the patient, greater than half was spent [id number] with the patient. [id number]/[facility] #: [id number] MTDD
== END 2017-03-26 15:00 | disposition home or self-care (01) | DRG 383 ==
LOC: ED 16:40 → MED 23:23
PROVIDERS: ADMIT Hospitalist; ATTEND Internal Medicine
DX: L03.115 Cellulitis of right lower limb (principal); E11.621 Type 2 diabetes mellitus with foot ulcer; L97.419 Non-pressure chronic ulcer of right heel and midfoot with unspecified severity; B95.7 Other staphylococcus as the cause of diseases classified elsewhere; E11.65 Type 2 diabetes mellitus with hyperglycemia; F17.210 Nicotine dependence, cigarettes, uncomplicated; Z88.1 Allergy status to other antibiotic agents; Z88.5 Allergy status to narcotic agent; Z88.0 Allergy status to penicillin; Z83.3 Family history of diabetes mellitus; Z79.4 Long term (current) use of insulin; Z79.899 Other long term (current) drug therapy; Z83.49 Family history of other endocrine, nutritional and metabolic diseases
CPT/HCPCS: 36415; 80048; 80053; 80202; 83605; 85025; 86141; 87040; 93306; 93880; 99406; A9270-GY; J2405; J3370